=== PATIENT | female | born 1985 | race Two or more races ===

== ENCOUNTER → 2025-04-01 | Emergency (ER) | payer OTHER ==
[~2025-04-01] VITALS: Ht 162.6 cm; Wt 72.6 kg
[~2025-04-01] MED LIST: ACETAMINOPHEN500 M1 PO; CLEOCIN HCL300 MG PO; DEXAMETHASONE SODIUM PHOSPHATE 4 MG/ML VIAL IM ONE; DEXAMETHASONE SODIUM PHOSPHATE 4 MG/ML VIAL ONE; IBUPROFEN800 MG PO; KETOROLAC TROMETHAMINE 60 MG VIAL IM ONE
== END | disposition home or self-care (01) ==
LOC: ER 21:28
DX: K08.89 Other specified disorders of teeth and supporting structures (principal); Z88.0 Allergy status to penicillin; Z88.2 Allergy status to sulfonamides